=== PATIENT | male | born 1995 | race Caucasian/White ===

== ENCOUNTER 2021-09-30 14:44 | Emergency (ER) | payer OTHER, BC, SELFPAY ==
--- NOTE | ~2021-09-30 | XR_ITS ---
XR ankle RT min 3V DATE: 09/30/2021 15:13 INDICATION: Pulled table fell on distal tibia; right ankle pain TECHNIQUE: 4 views COMPARISON: None FINDINGS: There is prominent soft tissue swelling along the distal medial lower leg and medial left a nkle. No fracture or dislocation of the ankle or disruption of the ankle mortise. No periosteal reaction or bone destruction. IMPRESSION: Prominent soft tissue swelling of the medial lower leg and ankle; no fracture or dislocat ion Reviewed, dictated and finalized at location A. IMPRESSION: Prominent soft tissue swelling of the medial lower leg and ankle; n o fracture or dislocation
[2021-09-30 15:00] VITALS: BP 136/85; PULSE 91; RESP 16; TEMP 36.7; O2SAT 98
--- NOTE | 2021-09-30 15:34 | ED.LOWEXIN ---
HPI - Extremity Injury (Lower) General Chief Complaint: Extremity Injury, Lower Stated Complaint: rt ankle injury-work related Time Seen by Provider: 09/30/21 14:56 Source: patient Mode of arrival: wheelchair Limitations: no limitations History of Present Illness HPI Narrative: 26-year-old male presents to urgent care with complaints of pain and swelling to his right medial malleolus for the past few hours. Patient reports he was at work, moving a pool table by himself when he accidentally dropped a pool table on his right ankle. Patient has been applying cool compress with minimal relief. Patient not tried taking any [id number] medications for his symptoms. MD complaint: ankle injury Onset (ago): hour(s) (4) Injury: Right: ankle Place: work Other symptoms: none Treatments prior to arrival: cold therapy Related Data Home Medications Medication Instructions Recorded Confirmed No Home Medications 09/30/21 09/30/21 Allergies Allergy/AdvReac Type Severity Reaction Status Date / Time No Known Allergies Allergy Verified 09/30/21 15:10 Review of Systems Constitutional: Constitutional: Denies chills, Denies fatigue, Denies fever(s) and Denies weakness ENT: Denies sore throat Cardiovascular: Cardiovascular: Denies chest pain Respiratory: Respiratory: Denies cough, Denies dyspnea and Denies wheezing Gastrointestinal: Gastrointestinal: Denies abdominal pain, Denies diarrhea, Denies nausea and Denies vomiting Musculoskeletal: Comments: Pain, swelling and abrasion noted to right medial malleolus Neurologic: Denies dizziness PMFSH Comments At time of signature, I agree with nursing past medical, surgical, social and family history. There is no relevant family history pertinent to the presenting complaint. Exam Const: General: no acute distress Nutritional Appearance: well nourished Orientation/consciousness: patient oriented x3 Neck: Neck: normal visual inspection Resp: Effort & Inspection: normal respiratory effort Auscultation: clear to auscultation bilaterally and crackles Cardio: Rate: regular rate, not bradycardic and not tachycardic Rhythm: regular rhythm Skin: Rashes: no rashes Wounds: no wounds Other: 4 cm linear abrasion noted to medial aspect of right ankle. Neuro: General: patient oriented x3, moves all extremities and no meningeal signs Extrem: Other: Moderate amount of swelling noted to medial aspect of right ankle. There is small amount of bruising noted. Abrasion noted. Pulses are within normal limits. Psych: Appearance: grossly normal Mental Status: mental status grossly normal Affect: normal affect Attitude: cooperative Thought content: Yes Normal thought content present Course Course Level of Care: Express Care Visit Vital Signs Vital signs: Vital Signs Temperature 36.7 C 09/30/21 15:00 Pulse Rate 91 09/30/21 15:00 Respiratory Rate 16 09/30/21 15:00 Blood Pressure 136/85 09/30/21 15:00 Pulse Oximetry 98 09/30/21 15:00 Temperature 36.7 C 09/30/21 15:00 Pulse Rate 91 09/30/21 15:00 Respiratory Rate 16 09/30/21 15:00 Blood Pressure 136/85 09/30/21 15:00 Pulse Oximetry 98 09/30/21 15:00 MDM - Extremity Injury (Lower) MDM Narrative Medical decision making narrative: Rice therapy discussed with patient. Cade wrap was applied to right ankle. Patient declines crutches. Patient agrees to follow-up with orthopedics or primary care provider if symptoms do not improve Differential Diagnosis Differential diagnosis: Likely other (Fracture, avulsion, abrasion) Critical Care Time Critical Care Time Critical Care Time: No Discharge Plan Discharge Clinical Impression: Ankle pain, right Qualifiers: Chronicity: acute Qualified Code(s): M25.571 - Pain in right ankle and joints of right foot Patient Disposition: Home, Self-Care Condition: Stable Instructions: Swollen Joint (ED) Additional Instructions: Elevate right ankle and
== END 2021-09-30 15:51 | disposition home or self-care (01) ==
PROVIDERS: Emergency Provider Nurse Practitioner Family
DX: M25.571 Pain in right ankle and joints of right foot (principal); W20.8XXA Other cause of strike by thrown, projected or falling object, initial encounter; Y99.0 Civilian activity done for income or pay
CPT/HCPCS: 73610; 99203; G0463

== ENCOUNTER 2022-02-08 10:03 | Emergency (ER) | payer BC, SELFPAY ==
[2022-02-08 10:11] VITALS: BP 145/84; PULSE 77; RESP 18; TEMP 36.8; O2SAT 98
--- NOTE | 2022-02-08 10:12 | ED.SKABFB ---
HPI - Skin/Abscess/Foreign Bdy General Chief complaint: Skin/Abscess/Foreign Body Stated complaint: rash Time Seen by Provider: 02/08/22 10:12 Source: patient Mode of arrival: ambulatory Limitations: no limitations History of Present Illness HPI narrative: 26-year-old male presented for complaint of rash started on thighs and spread to trunk, arms, and legs over the past 3 days. Pt provided pictures which showed red raised lesions from last night prior to taking benadryl. He states he was out of town for softball tournament was concerned it was a heat rash at first. Benadryl calmed it down but when he was not taking the Benadryl it flared up. Endorses itching. Denies lip, tongue, throat swelling, shortness of breath or wheezing. Denies changes to soap, detergent, lotion, meds/foods etc., but he states he stayed in a hotel. Related Data Allergies Allergy/AdvReac Type Severity Reaction Status Date / Time No Known Allergies Allergy Verified 02/08/22 10:19 Review of Systems Review of Systems: CONSTITUTIONAL: Denies body aches, fever, chills, or sweats. EYES: Denies visual changes, redness, or discharge. ENT: Denies rhinorrhea, congestion CARDIOVASCULAR: Denies chest pain, palpitations, or edema. RESPIRATORY: Denies dyspnea. GASTROINTESTINAL: Denies abdominal pain, nausea, vomiting, or diarrhea. SKIN: reports rash MUSCULOSKELETAL: Denies back pain, joint pain, or myalgia. NEUROLOGIC: Denies headache, numbness, tingling, or weakness. PMFSH Comments At time of signature, I have reviewed and agree with nursing past medical, surgical, social and family history unless otherwise noted. Please see nursing chart for further information. There is no relevant family history pertinent to the presenting complaint Exam Narrative: GENERAL: Well-appearing HEAD: Normocephalic, atraumatic. EYES: conjunctivae clear, and EOMI. ENT: Mucous membranes moist. Oropharynx without edema, erythema or lesions. NECK: Supple. No lymphadenopathy CHEST: Clear to auscultation. HEART: Regular rate and rhythm. SKIN: Warm, dry. Diffuse urticarial rash over trunk, arms and legs; appears pale pink and flat currently NEURO: Alert and oriented x3. Course Course Emergency Course: Patient is aware of diagnosis, understands and agrees to treatment plan. Anticipatory guidance given. Patient agrees to follow-up as directed and is aware of reasons to seek care at the emergency department. Portions of this record may have been created with voice recognition software Level of Care: Express Care Visit Vital Signs Vital signs: Vital Signs Temperature 98.3 F 02/08/22 10:11 Pulse Rate 77 02/08/22 10:11 Respiratory Rate 18 02/08/22 10:11 Blood Pressure 145/84 H 02/08/22 10:11 Pulse Oximetry 98 02/08/22 10:11 Oxygen Delivery Room Air 02/08/22 10:11 Temperature 98.3 F 02/08/22 10:11 Pulse Rate 77 02/08/22 10:11 Respiratory Rate 18 02/08/22 10:11 Blood Pressure 145/84 H 02/08/22 10:11 Pulse Oximetry 98 02/08/22 10:11 Oxygen Delivery Room Air 02/08/22 10:11 Reviewed MDM - Skin/Abscess/Foreign Bdy MDM Narrative Medical decision making narrative: Does not appear at this time to be erythema multiforme, bullous, SJS, TEN, monkeypox. Advised supportive measures, reviewed rx's, and s/s to go to the ER. Pt appropriate for outpt treatment and f/u. Instructed patient to go to nearest ER immediately for any worsening symptoms including but not limited to: fever, spreading rash, pain, sore throat, headache, dizziness, chest pain, trouble breathing, or any symptoms concerning to the patient. Differential Diagnosis Differential diagnosis: Likely abscess of skin or subcutaneous tissue, viral exanthem, urticaria, herpes zoster, allergic reaction to drug, cellulitis, insect bites and contact dermatitis Discharge Plan Discharge Clinical Impression: Urticaria Patient Disposition: Home, Self-Care Condition: Stable
== END 2022-02-08 10:24 | disposition home or self-care (01) ==
PROVIDERS: Emergency Provider Nurse Practitioner Family
DX: L50.9 Urticaria, unspecified (principal)
CPT/HCPCS: 99213; G0463

== ENCOUNTER 2022-05-10 07:00 | Outpatient (NON) | payer BC, SELFPAY | END 2022-05-10 07:01 | disposition home or self-care (01) | PROVIDERS: Visit Provider Surgery Plastic and Reconstructive Surgery | DX: L72.0 Epidermal cyst (principal) | CPT/HCPCS: 88304 ==